=== PATIENT | male | born 1965 | race Caucasian/White ===

== ENCOUNTER 2021-09-09 19:21 | Inpatient (IN) | payer OTHER ==
[~2021-09-09] VITALS: Ht 180.3 cm; Wt 102.2 kg
[~2021-09-09 19:21] MED LIST: Acetaminophen PO; Docusate Sodium PO; FERR325T28 PO; HYDR-3326 PO; HYDR25TA86 PO; Lisinopril PO; MAGN400O6 PO; MUPI22OI2 NS; PANT40TA2 PO; RXVAN XX; Silver Sulfadiazine TP; Zolpidem Tartrate PO
--- NOTE | 2021-09-09 19:39 | NUR ---
pt in room 4 b c/o left lower leg swelling.
[2021-09-09] MEDS ORDERED: TDAP DIPH,PERTUSS,TET VAC/PF 0.5 ML DISP.SYRIN IM ONE ×2 (19:45→20:22)
[2021-09-09] MEDS ORDERED: KETOROLAC TROMETHAMINE 30 MG INJ IVP ONE (19:45)
[2021-09-09] MEDS ORDERED: VANCOMYCIN 1G/D5W 200 ML PIGGYBACK IV ONE (19:45)
[2021-09-09] MEDS ORDERED: IV NORMAL SALINE 1000 ML BAG IV ONE (19:45)
[2021-09-09] MEDS ORDERED: VANCOMYCIN IV 200 ML ONE (19:47)
[2021-09-09] MEDS ORDERED: KETOROLAC TROMETHAMINE 30 MG INJ ONE (20:22)
[2021-09-09 21:27] LABS: MEAN CORPUSCULAR HEMOGLOBIN 29.9 uug (23.8-33.4); PLATELET COUNT (AUTO) 109 K/uL (152-348)
[2021-09-09 21:40] LABS: CARBON DIOXIDE 21 mmol/L (21-32); CHLORIDE 99 mmol/L (98-107); CREATININE 1.8 mg/dL (0.6-1.3); GLUCOSE 102 mg/dL (74-106); POTASSIUM 4.1 mmol/L (3.5-5.1); UREA NITROGEN, BLOOD 33 mg/dL (7-18)
[2021-09-09 21:51] LABS: ALANINE AMINOTRANSFERASE 27 U/L (16-63); ALKALINE PHOSPHATASE 93 U/L (50-136); ASPARTATE AMINOTRANSFERASE 35 U/L (15-37); BILIRUBIN,DIRECT 0.4 mg/dL (0.0-0.2); BILIRUBIN,TOTAL 1.3 mg/dL (0.2-1.0); TOTAL PROTEIN, SERUM 7.4 g/dL (6.4-8.2)
--- NOTE | 2021-09-09 22:45 | NUR ---
Dr. lake from [facility] at [phone] Gamboa.
--- NOTE | 2021-09-09 23:05 | NUR ---
[facility] called gave update on status of pt and labs. her number was [phone].
--- NOTE | 2021-09-09 23:11 | NUR ---
call [facility] panel doctor for admission.
[2021-09-09] MEDS ORDERED: ONDANSETRON 4 MG/2 ML VIAL IV PRN (23:30)
[2021-09-09] MEDS ORDERED: ACETAMINOPHEN 325 MG TABLET PO PRN (23:30)
[2021-09-09] MEDS ORDERED: hydrALAZINE HCL 20 MG/1 ML VIAL IV PRN (23:30)
--- NOTE | 2021-09-09 23:38 | NUR ---
[facility] called back spoke with Dr. Dudley.
[2021-09-10] VITALS (7 sets, daily range): BP systolic 91–135; BP diastolic 58–76
--- NOTE | 2021-09-10 00:07 | NUR ---
report given to Alma Delia BREWER pt to go to room 316
--- NOTE | 2021-09-10 01:10 | NUR ---
Admitted a 56 years old male with Dx of LLE Cellulitis. Patient asleep but arouse to verbal stimuli. AOx4. In no apparent distress. No SOB. Complain of some pain on left LLE. LLE reddened, warm and tender to touch. IV site on right wrist intact and patent. NSR on tele with Hr of 90/min. Routine admission care done. Plan of care initiated. Safety measure initiated and call light within reached.
--- NOTE | 2021-09-10 01:16 | NUR ---
pt transported to room 317 via [facility] with all belongings. OSMAN Wan at bedside to receive the pt. RN assignment changed from Alma Delia to [place] BREWER.
[2021-09-10 05:20] LABS: *BILIRUBIN,URIN NEGATIVE (NEGATIVE); *BLOOD, URINE NEGATIVE (NEGATIVE); *CLARITY,URINE HAZY (CLEAR); *COLOR,URINE AMBER (YELLOW); *KETONES,URINE NEGATIVE (NEGATIVE); LEUKOCYTE ESTERASE ,URINE NEGATIVE (NEGATIVE); NITRITE, URINE NEGATIVE (NEGATIVE); PH,URINE 5.5 (5.0-8.0); UGLUCOSE NEGATIVE (NEGATIVE)
[2021-09-10 05:39] LABS: BACTERIA,URINE NONE SEEN /HPF (NONE SEEN); RBC,URINE 0-3 /HPF (0-3); SQUAMOUS EPITHELIAL CELL,UR FEW /HPF (NONE SEEN); WBC,URINE 0-3 /HPF (0-3)
[2021-09-10 05:45] LABS: *AMPHETAMINE, URINE POSITIVE (NEGATIVE); *CANNABINOID, URINE NEGATIVE (NEGATIVE); *COCCAINE, URINE NEGATIVE (NEGATIVE); *OPIATE, URINE NEGATIVE (NEGATIVE); *PHENCYCLIDINE SCREEN,URINE POSITIVE (NEGATIVE)
[2021-09-10] MEDS: PANTOPRAZOLE SODIUM 40 MG TABLET.DR PO SCH (06:08)
[2021-09-10 07:07] LABS: HEMATOCRIT 42.7 % (36.7-47.1); MEAN CORPUSCULAR HEMOGLOBIN 29.7 uug (23.8-33.4); MEAN CORPUSCULAR VOLUME 86.1 fL (73.0-96.2); PLATELET COUNT (AUTO) 93 K/uL (152-348)
[2021-09-10 07:24] LABS: BILIRUBIN,TOTAL 0.8 mg/dL (0.2-1.0); PHOSPHOROUS 2.7 mg/dL (2.5-4.9); POTASSIUM 4.1 mmol/L (3.5-5.1); TOTAL PROTEIN, SERUM 6.9 g/dL (6.4-8.2)
[2021-09-10] MEDS ORDERED: CEFEPIME HCL 1 G in IV DEXTROSE 5% 50 ML IV ONE (08:00)
--- NOTE | 2021-09-10 08:00 | NUR ---
RECEIVED RESULT OF THE LACTIC ACID 2.[address] FROM [address] LAB AND DR HOANG NOTIFIED AT 0815 WITH NO NEW ORDERS AT THIS TIME.
[2021-09-10] MEDS: DOCUSATE SODIUM 100 MG CAPSULE PO SCH ×2 (09:00→16:40)
[2021-09-10] MEDS ORDERED: CEFEPIME HCL 2 G in IV DEXTROSE 5% 100 ML IV SCH (09:00)
[2021-09-10] MEDS: LISINOPRIL 10 MG TABLET PO SCH ×2 (09:00→21:46)
[2021-09-10] MEDS ORDERED: CEFEPIME HCL 1 G in IV DEXTROSE 5% 50 ML IV SCH (09:00)
[2021-09-10] MEDS: FUROSEMIDE 40 MG/4 ML VIAL IV SCH ×2 (09:00→20:50)
[2021-09-10] MEDS: MIRALAX 17 GM POWD.PACK PO SCH (09:01)
[2021-09-10] MEDS: HEPARIN SODIUM,PORCINE 5,000 UNITS/ML VIAL SQ SCH ×2 (09:01→20:56)
[2021-09-10] MEDS: MORPHINE SULFATE 2 MG/1 ML DISP.SYRIN IV PRN ×3 (09:20→20:51)
--- NOTE | 2021-09-10 09:29 | NUR ---
IV SITE VERY POSITIONAL AND NOT EFFECTIVE WAS ABLE TO GIVE PATIENT MORPHINE AND DELANO DA SILVA NOTIFIES WITH ORDER TO INSERT A MIDLINE.FLIGHT ENGINEER INSTRUCTOR NOTIFIED
--- NOTE | 2021-09-10 12:12 | NUR ---
new orders noted from dr holland
--- NOTE | 2021-09-10 12:16 | NUR ---
WOUND CARE CONSULT: PT HAVING PROCEDURE AT THIS TIME. REVIEWED CHART, NURSING DOCUMENTATION AND PHOTO WHICH INDICATES LEFT LOWER EXTREMITY REDNESS AND SWELLING, PRESENT ON ADMISSION. DEFER TO PMD. DISCUSSED SKIN PROTECTION WITH NURSING STAFF. CURRENT HILL SCORE IS 20.
[2021-09-10] MEDS ORDERED: LISI20TA30 PO (13:00)
[2021-09-10] MEDS ORDERED: CETI-90 PO (13:03)
--- NOTE | 2021-09-10 13:10 | NUR ---
Social Work consult requested for patient on medsur. Patient is a 56-year-old male admitted to the hospital for cellulitis. Upon aids social worker assessment, patient was alert and oriented X3 (name, situation, and place). Patient was unable to state the date, but was able to state the correct year. Patient presents with depressed mood and full range of affect. Patient presents with coherent, and goal directed thought process. SW explored patients social support. Patient states that his primary electrical contacts adjuster is his brother, Moe Menjivar ([phone]) and they have a good relationship. SW explored patients living situation. Patient states that he lives in an [place] [address] [place] [address]. Patient states that he lives with his girlfriend, Giovanna, and has been living in the apartment for 6 months. SW explored patients financial status. Patient states that he is unemployed and is receiving general relief and food stamps. Patient states he is ambulatory and does not require the use of DMEs. SW explored patients history of substance abuse. Patient states that he uses meth since he was 27 years old. He stated the last time he used meth was 4 days ago. The toxicology screen is positive for amphetamine and phencyclidine. SW offered the patient substance abuse resources and put the resources in the chart. SW explored history of psychiatric diagnosis. Patient denies history of psychiatric diagnosis. Patient denied suicidal or homicidal ideation. SW provided emotional support, validation, and coping strategies. Patient states that he will go home at discharge. Patient states he is not sure how he will be transported back home. Patient will be offered a TAP card if needed.
--- NOTE | 2021-09-10 13:10 | NUR ---
MID LINE INSERTED TO HIS LEFT UPPER ARM AND ATB INFUSING ORDERED.
[2021-09-10] MEDS ORDERED: FURO80TA3 PO (13:12)
[2021-09-10] MEDS ORDERED: FURO40TA5 PO (13:13)
--- NOTE | 2021-09-10 13:37 | NUR ---
KIDNEY ULTRA SOUND COMPLETED ORDERED
--- NOTE | 2021-09-10 15:31 | NUR ---
MEDICATED WITH MORPHINE ORDERED WILL OBSERVE.
--- NOTE | 2021-09-10 18:00 | NUR ---
RESTING IN BED COMFORTABLE AT THIS TIME.
[2021-09-10 18:05] LABS: *BILIRUBIN,URIN NEGATIVE (NEGATIVE); *CLARITY,URINE CLEAR (CLEAR); *COLOR,URINE YELLOW (YELLOW); *KETONES,URINE NEGATIVE (NEGATIVE); *UROBILINOGEN,URINE 0.2 E.U./dl (NORMAL); LEUKOCYTE ESTERASE ,URINE NEGATIVE (NEGATIVE); NITRITE, URINE NEGATIVE (NEGATIVE); PH,URINE 5.5 (5.0-8.0); UGLUCOSE NEGATIVE (NEGATIVE)
[2021-09-10 18:20] LABS: *CREATININE,URINE 142.4 mg/dL (30-125)
[2021-09-10 18:36] LABS: *BLOOD, URINE TRACE (NEGATIVE)
[2021-09-10 18:54] LABS: BACTERIA,URINE NONE SEEN /HPF (NONE SEEN); RBC,URINE 0-3 /HPF (0-3); SQUAMOUS EPITHELIAL CELL,UR NONE SEEN /HPF (NONE SEEN); WBC,URINE 0-3 /HPF (0-3)
--- NOTE | 2021-09-10 19:30 | NUR ---
AAOx4. In no apparent distress. No SOB. Complain of some pain on left LLE. LLE swollen, reddened, warm and to touch. Will provide pain medication per order. IV site on right wrist remains intact and patent. Midline on left upper arm intact and patent. NSR on tele with HR of 96/min. Needs attended to and met. Safety measure initiated and call light within reached.
[2021-09-11 00:07] VITALS: BP 115/69
--- NOTE | 2021-09-11 00:22 | NUR ---
Patient with temp of 100.3 orally. Tylenol 650mg PO given and cooling measures provided. Continue to monitor.
[2021-09-11 03:48] VITALS: BP 104/52
[2021-09-11] MEDS: PANTOPRAZOLE SODIUM 40 MG TABLET.DR PO SCH (06:03)
[2021-09-11] MEDS: MORPHINE SULFATE 2 MG/1 ML DISP.SYRIN IV PRN ×2 (06:04→15:35)
[2021-09-11 06:54] LABS: HEMATOCRIT 41.2 % (36.7-47.1); MEAN CORPUSCULAR HEMOGLOBIN 30.4 uug (23.8-33.4); MEAN CORPUSCULAR VOLUME 87.9 fL (73.0-96.2); PLATELET COUNT (AUTO) 89 K/uL (152-348)
[2021-09-11 07:04] LABS: BILIRUBIN,TOTAL 0.5 mg/dL (0.2-1.0); CREATININE 1.8 mg/dL (0.6-1.3); POTASSIUM 3.6 mmol/L (3.5-5.1); TOTAL PROTEIN, SERUM 6.6 g/dL (6.4-8.2)
[2021-09-11] MEDS ORDERED: CEFEPIME HCL 2 G in IV DEXTROSE 5% 100 ML IV SCH (09:00)
[2021-09-11] MEDS ORDERED: LISINOPRIL 20 MG TABLET PO SCH (09:00)
[2021-09-11] MEDS: DOCUSATE SODIUM 100 MG CAPSULE PO SCH ×2 (09:28→16:11)
[2021-09-11] MEDS: MIRALAX 17 GM POWD.PACK PO SCH (09:28)
[2021-09-11] MEDS: FUROSEMIDE 40 MG/4 ML VIAL IV SCH (09:30)
[2021-09-11] MEDS: HEPARIN SODIUM,PORCINE 5,000 UNITS/ML VIAL SQ SCH (09:30)
[2021-09-11] MEDS ORDERED: VANCOMYCIN IV 1,500 MG in IV DEXTROSE 5% 500 ML IV SCH (11:00)
--- NOTE | 2021-09-11 11:06 | NUR ---
SW explored patient's previous homeless status. Patient stated that he is not homeless and living at [address] [facility] in an apartment with his girlfriend, Giovanna. Patient declined homeless resources and denied signing the homeless waiver. SW put the homeless waiver and resoures in the patient's chart.
[2021-09-11 11:39] VITALS: BP 94/53
[2021-09-11 15:46] VITALS: BP 93/60
--- NOTE | 2021-09-11 18:35 | NUR ---
Pt left AMA, he stated that he wants to leave and go for a smoke. IV adn ID band removed, AMA form signed.
== END 2021-09-11 18:35 | disposition left against medical advice (07) | DRG 720 ==
LOC: ER 19:23 → TELE3 23:59
PROVIDERS: ADMIT Internal Medicine; ATTEND Internal Medicine
PROC: B547ZZA Ultrasonography of Left Subclavian Vein, Guidance (ICD-10-PCS; principal; 2021-09-10)
PROC: 05H633Z Insertion of Infusion Device into Left Subclavian Vein, Percutaneous Approach (ICD-10-PCS; principal; 2021-09-10)
DX: A41.9 Sepsis, unspecified organism (principal); N17.0 Acute kidney failure with tubular necrosis; I50.43 Acute on chronic combined systolic (congestive) and diastolic (congestive) heart failure; E87.2 Acidosis; E87.1 Hypo-osmolality and hyponatremia; D69.6 Thrombocytopenia, unspecified; E88.09 Other disorders of plasma-protein metabolism, not elsewhere classified; I13.0 Hypertensive heart and chronic kidney disease with heart failure and stage 1 through stage 4 chronic kidney disease, or unspecified chronic kidney disease; L03.116 Cellulitis of left lower limb; N18.9 Chronic kidney disease, unspecified; Z59.00 Homelessness unspecified; Z91.14 Patient's other noncompliance with medication regimen; I87.2 Venous insufficiency (chronic) (peripheral); N28.1 Cyst of kidney, acquired; I42.8 Other cardiomyopathies; F15.10 Other stimulant abuse, uncomplicated; F16.10 Hallucinogen abuse, uncomplicated
CPT/HCPCS: 36415; 71045; 73590; 73700; 76770; 83605; 84100; 84300; 84484; 85025; 87040; 90715; 93005; 93307; A4663; G0378; J0692; J1644; J1885; J1940; J2270; J3370; J7040; J7060

== ENCOUNTER 2021-09-16 20:52 | Emergency (ER) | payer OTHER ==
[~2021-09-16] VITALS: Ht 180.3 cm; Wt 99.8 kg
[~2021-09-16 20:52] MED LIST changes: -Acetaminophen PO; +CETI-90 PO; -Docusate Sodium PO; -FERR325T28 PO; +FURO40TA5 PO; -HYDR-3326 PO; -HYDR25TA86 PO; +LISI20TA30 PO; -Lisinopril PO; -MAGN400O6 PO; -MUPI22OI2 NS; -PANT40TA2 PO; -RXVAN XX; -Silver Sulfadiazine TP; -Zolpidem Tartrate PO
--- NOTE | 2021-09-16 21:10 | NUR ---
PT BIB [facility] FROM HOME C/O LLE CELLULITIS. PT WAS BEING TREATED AT [place] ABOUT 4 DAYS AGO AND ON ATB THERAPY BUT LEFT AMA. PT A/O X4, NO SOB OR LABORED BREATHING, AFEBRILE.
[2021-09-16] MEDS ORDERED: VANCOMYCIN IV 500 MG in IV DEXTROSE 5% 100 ML IV ONE (21:15)
[2021-09-16] MEDS ORDERED: CEFEPIME HCL 2 G in IV DEXTROSE 5% 100 ML IV ONE (21:15)
[2021-09-16] MEDS ORDERED: VANCOMYCIN 1G/D5W 200 ML PIGGYBACK IV ONE (21:15)
--- NOTE | 2021-09-16 21:41 | NUR ---
Patient back from Xray.
[2021-09-16] MEDS ORDERED: CEFEPIME HCL 1 G VIAL ONE (21:42)
[2021-09-16] MEDS ORDERED: MORPHINE SULFATE 4 MG/1 ML DISP.SYRIN IV ONE (22:00)
[2021-09-16] MEDS ORDERED: MORPHINE SULFATE 4 MG/1 ML DISP.SYRIN ONE (22:04)
[2021-09-16 22:46] LABS: HEMATOCRIT 42.4 % (36.7-47.1); MEAN CORPUSCULAR HEMOGLOBIN 29.8 uug (23.8-33.4); MEAN CORPUSCULAR VOLUME 87.6 fL (73.0-96.2); PLATELET COUNT (AUTO) 331 K/uL (152-348)
[2021-09-16] MEDS ORDERED: VANCOMYCIN IV 400 ML ONE (22:53)
[2021-09-16 23:06] LABS: BILIRUBIN,DIRECT 0.2 mg/dL (0.0-0.2); BILIRUBIN,TOTAL 0.5 mg/dL (0.2-1.0); CREATININE 1.2 mg/dL (0.6-1.3); POTASSIUM 4.7 mmol/L (3.5-5.1); TOTAL PROTEIN, SERUM 8.1 g/dL (6.4-8.2)
--- NOTE | 2021-09-17 00:03 | NUR ---
Additional 500mg of Vancomycin administered via IV on left upper arm #20G
--- NOTE | 2021-09-17 00:06 | NUR ---
RECEIVED CALL FROM [facility] WITH [facility] PROVIDED CLINICALS AND WILL AWAIT FOR CALL BACK.
--- NOTE | 2021-09-17 00:35 | NUR ---
Dr Dudley on panel call with Dr Ruggiero from [facility].
--- NOTE | 2021-09-17 02:16 | NUR ---
[facility] spoke to Alma Delia to follow up regarding pt transfer. Per Alma Delia. Transferred call to admitting and stated that the CM from [facility] needs to be contacted.
[2021-09-17 02:52] LABS: BAND % (MANUAL) 2 % (0-10); LYMPHOCYTES % (MANUAL) 10 % (20-40); MONOCYTES % (MANUAL) 6 % (2-10)
[2021-09-17 02:53] LABS: BASOPHILS % (MANUAL) 1 % (0-2); EOSINOPHILS % (MANUAL) 3 % (0-8); NEUTROPHILS % (MANUAL) 78 % (42-75)
--- NOTE | 2021-09-17 03:55 | NUR ---
BETZY FORMAN CALLED FROM [facility], ROOM: [id number] REPORT #: [phone] DURBIN
--- NOTE | 2021-09-17 04:02 | NUR ---
CALLED [facility] SPOKE WITH [facility] PROVIDED ETA OF 45 MINUTES TO 1 HOUR.
--- NOTE | 2021-09-17 04:10 | NUR ---
Telephone call to Karan Mandujano RN Linda and gave report on patient and states undrstanding.
--- NOTE | 2021-09-17 05:30 | NUR ---
[facility]ulance unit 350 arrived to worm picker patient via gurney accompanied by 2 paramedics. Report given and records provided.
--- NOTE | 2021-09-17 05:31 | NUR ---
Patient Tranfers to outside Facility Physician: Dr Ruggiero Location: [facility]
== END 2021-09-17 05:33 | disposition short-term general hospital (02) ==
LOC: ER 20:54
DX: L03.116 Cellulitis of left lower limb (principal); J44.9 Chronic obstructive pulmonary disease, unspecified; I10 Essential (primary) hypertension; Z20.822 Contact with and (suspected) exposure to COVID-19; Z59.00 Homelessness unspecified; Z88.0 Allergy status to penicillin; Z87.01 Personal history of pneumonia (recurrent); Z79.899 Other long term (current) drug therapy
CPT/HCPCS: 36415; 71045; 80048; 80076; 83605; 85007; 85025; 87040 ×2; 87426; 96365; 96366; 96375 ×2; 99285; J0692; J2270; J3370; 70030-TC; A4663